=== PATIENT | male | born 1970 | race Caucasian/White ===

== ENCOUNTER 2019-08-04 18:06 | Outpatient (REF) | payer BC, SELFPAY ==
[2019-08-04 20:30] LABS: HCT 37.9 % (40.0-50.0); HGB 13.4 g/dL (13.5-17.5); Mean Corp. HGB Concentration 35.4 g/dL (32.0-36.0); Mean Corpuscular Volume 87.7 fL (80-95); Mean Platelet Volume 10.5 fL (8.0-11.0); Platelet Count 215 x1000/uL (130-400); RBC 4.32 m/cumm (4.50-6.00); RBC Distribution Width 11.8 % (11.8-14.1); White Blood Cell Count 4.99 k/cumm (4.4-10.8)
[2019-08-04 21:02] LABS: Vitamin D 25 Total 26.5 ng/ml (30-100)
[2019-08-08 13:22] LABS: IgA 236 mg/dL (85-499); Tissue Transglutaminase IgA <1.2 U/mL (<4.0)
== END 2019-08-04 18:26 ==
LOC: NCHCN 18:06
PROVIDERS: PCP Family Medicine; Visit Provider Family Medicine
DX: D64.9 Anemia, unspecified (principal); E55.9 Vitamin D deficiency, unspecified; W57.XXXA Bitten or stung by nonvenomous insect and other nonvenomous arthropods, initial encounter; T14.8XXA Other injury of unspecified body region, initial encounter
CPT/HCPCS: 82306; 82784; 83516; 85027

== ENCOUNTER 2019-12-20 19:28 | Outpatient (REF) | payer BC, SELFPAY ==
[2019-12-20 22:33] LABS: HCT 41.5 % (40.0-50.0); HGB 14.5 g/dL (13.5-17.5); MCH 30.7 pg (27.0-33.0); MCHC 34.9 % (32.0-36.0); MCV 87.9 fL (80-95); MPV 11.4 fL (8.0-11.0); Platelet Count 249 10^3/uL (130-400); RBC 4.72 10^6/uL (4.36-5.78); RDW 11.6 % (11.8-14.1); RDW-SD 37.2 fL
[2019-12-20 22:48] LABS: Iron 101 ug/dL (65-175)
[2019-12-20 22:50] LABS: Calculated LDL 166 mg/dL (<100); Cholesterol 239 mg/dL (<200); HDL Cholesterol 62 mg/dL (40-60); Triglyceride 56 mg/dL (<150)
== END 2019-12-20 19:48 ==
LOC: NCHCN 19:28
PROVIDERS: PCP Family Medicine; Visit Provider Family Medicine
DX: Z13.220 Encounter for screening for lipoid disorders (principal); D64.9 Anemia, unspecified
CPT/HCPCS: 80061; 85027; 83540

== ENCOUNTER 2020-12-19 19:22 | Outpatient (REF) | payer BC, SELFPAY ==
[2020-12-19 19:09] LABS: HCT 42.9 % (40.0-50.0); HGB 14.4 g/dL (13.5-17.5); MCH 30.4 pg (27.0-33.0); MCHC 33.6 % (32.0-36.0); MCV 90.5 fL (80-95); MPV 10.7 fL (8.0-11.0); Platelet Count 261 10^3/uL (130-400); RBC 4.74 10^6/uL (4.36-5.78); RDW 11.8 % (11.8-14.1); WBC 4.56 10^3/uL (4.4-10.8)
[2020-12-19 19:20] LABS: Iron 136 ug/dL (65-175)
[2020-12-19 19:22] LABS: Anion Gap 6.9 mmol/L (3-11); BUN 21 mg/dL (7-18); CO2 31.1 mmol/L (21.0-32.0); Calcium 9.2 mg/dL (8.5-10.1); Calculated LDL 147 mg/dL (<100); Chloride 104 mmol/L (98-107); Cholesterol 218 mg/dL (<200); Glucose 89 mg/dL (74-106); HDL Cholesterol 56 mg/dL (40-60); Potassium 4.2 mmol/L (3.5-5.1); Sodium 142 mmol/L (136-145); Triglyceride 79 mg/dL (<150)
[2020-12-20 00:36] LABS: Vitamin D 25 Total 25.7 ng/mL (30-100)
== END 2020-12-19 19:23 | disposition home or self-care (01) ==
LOC: NCHCN 19:22
PROVIDERS: PCP Family Medicine; Visit Provider Family Medicine
DX: D64.9 Anemia, unspecified (principal); E55.9 Vitamin D deficiency, unspecified; Z00.00 Encounter for general adult medical examination without abnormal findings
CPT/HCPCS: 80048; 80061; 82306; 85027; 83540

== ENCOUNTER 2023-07-21 09:48 | Outpatient (REF) | payer BC, SELFPAY ==
[2023-07-21 14:23] LABS: HCT 41.6 % (40.0-50.0); HGB 14.1 g/dL (13.5-17.5); MCH 30.5 pg (27.0-33.0); MCHC 33.9 % (32.0-36.0); MCV 90 fL (80-95); MPV 10.3 fL (8.0-11.0); Platelet Count 228 10^3/uL (130-400); RBC 4.62 10^6/uL (4.36-5.78); RDW 11.9 % (11.8-14.1); WBC 4.28 10^3/uL (4.4-10.8)
[2023-07-21 14:33] LABS: Anion Gap 5.1 mmol/L (3-11); BUN 28 mg/dL (7-18); CO2 32.9 mmol/L (21.0-32.0); CREATININE 1.2 mg/dL (0.70-1.30); Calcium 8.9 mg/dL (8.5-10.1); Calculated LDL 149 mg/dL (<100); Chloride 105 mmol/L (98-107); Cholesterol 226 mg/dL (<200); Estimated GFR 71.86 (mL/min/1.73m2); Glucose 108 mg/dL (74-106); HDL Cholesterol 61 mg/dL (40-60); Potassium 4.3 mmol/L (3.5-5.1); Sodium 143 mmol/L (136-145); Triglyceride 84 mg/dL (<150)
[2023-07-21 15:24] LABS: Vitamin D 25 Total 31.7 ng/mL (30-100)
== END 2023-07-21 09:49 | disposition home or self-care (01) ==
LOC: NCHCN 09:48
PROVIDERS: PCP Family Medicine; Visit Provider Family Medicine
DX: Z00.00 Encounter for general adult medical examination without abnormal findings (principal); E55.9 Vitamin D deficiency, unspecified; Z13.220 Encounter for screening for lipoid disorders; Z13.0 Encounter for screening for diseases of the blood and blood-forming organs and certain disorders involving the immune mechanism; Z13.228 Encounter for screening for other metabolic disorders
CPT/HCPCS: 80048; 80061; 82306; 85027